=== PATIENT | female | born 1975 | race Caucasian/White ===

== ENCOUNTER 2016-03-11 10:48 | Emergency (ER) | payer MEDICAID ==
--- NOTE | 2016-03-11 11:04 | Emergency Department Record ---
History of Present Illness - General Chief complaint: Eye Problem Stated complaint: EYE PROBLEMS Time Seen by Provider: 03/11/16 11:03 Source: Patient Mode of Arrival: Ambulatory Limitations: No limitations - History of Present Illness Initial comments: The patient has had 3 days of itching, burning eyes with mild drainage and discharge. She denies any visual changes but presently does not have her glasses. She was around her mother recently who had pink eye. chief complaint: Eye pain, Eye redness Onset/Timin -: Days(s) Onset Description: Gradual Location: Both eyes Place: Home If Injury: None Eye Symptoms: Burning, Discharge, Itching, Redness Severity: Moderate If Pain, Quality: Burning Consistency: Constant Associated Symptoms: None Treatments Prior to Arrival: None - Related Data Visual acuity (L) = 20/: 200 Visual acuity (R) = 20/: 200 With correction: No Hx Tetanus Toxoid Vaccination: Yes Year of Tetanus Vaccination: 2013 Home Medications Medication Instructions Recorded Confirmed Last Taken Oxybutynin Chloride [Ditropan] 5 mg PO BID 07/05/15 03/11/16 1 Day Ago Aspirin [Aspir 81] 81 mg PO DAILY tab. 11/17/15 03/11/16 1 Day Ago Previous Rx's Medication Instructions Recorded Erythromycin Base [Erythromycin 1 apply AFFEYE TID #1 tube 03/11/16 OPTH Ointment] Allergies Allergy/AdvReac Type Severity Reaction Status Date / Time ciprofloxacin [From Cipro] Allergy Severe ANAPHYLAXIS Verified 03/11/16 11:01 ciprofloxacin HCl Allergy Severe ANAPHYLAXIS Verified 03/11/16 11:01 [From Cipro] Penicillins Allergy Severe ANAPHYLAXIS Verified 03/11/16 11:01 ketorolac tromethamine AdvReac Mild NAUSEA AND Verified 03/11/16 11:01 [From Toradol] VOMITING sulfamethoxazole AdvReac Mild NAUSEA AND Verified 03/11/16 11:01 [From Bactrim] VOMITING trimethoprim [From Bactrim] AdvReac Mild NAUSEA AND Verified 03/11/16 11:01 VOMITING vitamin d AdvReac Mild HYPERSENSIT Uncoded 12/28/15 17:11 IVITY Travel Screening - Travel/Exposure Within Last 30 Days Have you traveled within the last 30 days?: No Review of Systems Constitutional: Denies: Chills, Fever Eyes: Denies: Eye discharge ENT: Denies: Congestion Respiratory: Denies: Cough, Dyspnea Past Medical History - SOCIAL HISTORY Smoking Status: Current every day smoker Alcohol Use: None Drug Use: None - RESPIRATORY Hx Respiratory Disorders: Yes Hx Asthma: Yes (exercise) - CARDIOVASCULAR Hx Cardio Disorders: No Hx Chest Pain: Yes Comment:: 2 stress test this year - NEURO Hx Neuro Disorders: Yes Hx Headaches: Yes (migraines) - GI Hx GI Disorders: No Comment:: concussion - Hx Genitourinary Disorders: Yes Hx Bladder Problem: Yes Hx Kidney Stones: Yes (Dr. UMM Graham surgically removed a right kidney stone on 07-04-13.) - ENDOCRINE Hx Endocrine Disorders: No - MUSCULOSKELETAL Hx Musculoskeletal Disorders: Yes Hx Back Injury: Yes (SLIP AND FALL IN 2006) - PSYCH Hx Psych Problems: Yes Hx Anxiety: Yes Hx Depression: Yes - HEMATOLOGY/ONCOLOGY Hx Hematology/Oncology Disorders: No Family Medical History Any Significant Family History?: Yes Hx Cancer: Mother Hx Diabetes: Mother, Grandparents Hx Resp Disorders: Father Physical Exam - General General Appearance: Alert, Oriented x3, Cooperative, No acute distress - Head Head exam: Atraumatic, Normocephalic, Normal inspection - Eye Eye exam: Normal appearance, PERRL, EOMI, Other (Neg flourescein staining bilaterally). negative: Conjunctival injection, Periorbital tenderness, Scleral icterus With correction: No - ENT ENT exam: Normal exam, Mucous membranes moist, Normal external ear exam, Normal orophraynx, TM's normal bilaterally Throat exam: Normal inspection. negative: Tonsillar erythema, Tonsillar exudate Course Vital Signs 03/11/16 10:52 Temperature 97.9 F Pulse Rate 59 L Respiratory 18 Rate Blood Pressure 167/91 Pulse Ox 98 - Reevaluation(s) Reevaluation #1: I did discuss with the patient that she appears to have a mild case of conjunctivitis. We will prescribe her Emycin ointment. 03/11/16 11:14 Disposition Disposition: Discharge Clinical Impression: Conjunctivitis Qualifiers: Conjunctivitis type: acute Acute conjunctivitis type: unspecified Laterality: bilateral Qualified Code(s): H10.33 - Unspecified acute conjunctivitis, bilateral Disposition: Home, Self-Care Condition: (2) Stable Instructions: Conjunctivitis (ED) Additional Instructions: Please use the Emycin opthalmic ointment as directed. Please see your PCP if not better in 3 days. Prescriptions: Erythromycin Base [Erythromycin OPTH Ointment] 1 apply AFFEYE TID #1 tube Forms: Patient Portal Access Time of Disposition: 11:17
== END 2016-03-11 11:41 | disposition home or self-care (01) ==
LOC: ER 10:48
DX: H10.33 Unspecified acute conjunctivitis, bilateral (principal)
CPT/HCPCS: 99282

== ENCOUNTER 2016-04-30 16:21 | Emergency (ER) | payer MEDICAID ==
[2016-04-30] MEDS ORDERED: ONDANSETRON 4 MG ODT TABLET SL ONE (17:40)
--- NOTE | 2016-04-30 17:45 | Emergency Department Record ---
History of Present Illness - General Chief complaint: Nausea, Vomiting, Diarrhea Stated complaint: VOMITING/BODY PAINFUL Time Seen by Provider: 04/30/16 17:40 Source: Patient, Family Mode of Arrival: Ambulatory Limitations: No limitations - History of Present Illness Initial comments: 41 yo female presents with nausea, vomiting, and diarrhea that started last night. The patient denies and fever. No blood in the vomit or diarrhea. She took Imodium last night. The diarrhea resolved. She has not vomited today but remains nauseated. No rash. No cough. No recent antibiotics. MD complaint: Diarrhea, Nausea, Vomiting Onset/Timin -: Days(s) Description of Vomiting: Watery Description of Diarrhea: Green Location: Diffuse Severity: Moderate Severity scale (1-10): 9 Quality: Aching Consistency: Intermittent Improves with: Medication, Other Worsens with: Eating Associated Symptoms: Denies other symptoms - Related Data Home Medications Medication Instructions Recorded Confirmed Last Taken Oxybutynin Chloride [Ditropan] 5 mg PO BID 07/05/15 04/30/16 1 Day Ago Aspirin [Aspir 81] 81 mg PO DAILY tab. 11/17/15 04/30/16 1 Day Ago Previous Rx's Medication Instructions Recorded Ondansetron [Zofran Odt] 4 mg PO Q8H #12 tab.shaw 04/30/16 Allergies Allergy/AdvReac Type Severity Reaction Status Date / Time ciprofloxacin [From Cipro] Allergy Severe ANAPHYLAXIS Verified 04/30/16 17:27 ciprofloxacin HCl Allergy Severe ANAPHYLAXIS Verified 04/30/16 17:27 [From Cipro] Penicillins Allergy Severe ANAPHYLAXIS Verified 04/30/16 17:27 ketorolac tromethamine AdvReac Mild NAUSEA AND Verified 04/30/16 17:27 [From Toradol] VOMITING sulfamethoxazole AdvReac Mild NAUSEA AND Verified 04/30/16 17:27 [From Bactrim] VOMITING trimethoprim [From Bactrim] AdvReac Mild NAUSEA AND Verified 04/30/16 17:27 VOMITING vitamin d AdvReac Mild HYPERSENSIT Uncoded 04/30/16 17:27 IVITY Travel Screening - Travel/Exposure Within Last 30 Days Have you traveled within the last 30 days?: No - Travel/Exposure Within Last Year Have you traveled outside the [place] in the last year?: No - Additonal Travel Details Have you been exposed to anyone with a communicable illness?: No - Travel Symptoms Symptom Screening: None Review of Systems Constitutional: Denies: Chills, Fever, Malaise, Weakness Eyes: Denies: Eye discharge, Eye pain, Photophobia ENT: Denies: Congestion, Throat pain Respiratory: Denies: Cough, Dyspnea, Hemoptysis, Stridor, Wheezes Cardiovascular: Denies: Chest pain, Palpitations, Syncope Endocrine: Denies: Fatigue Gastrointestinal: Reports: As per HPI, Diarrhea, Nausea, Vomiting. Denies: Constipation, Hematemesis, Hematochezia, Melena Genitourinary: Denies: Dysuria, Urgency Musculoskeletal: Denies: Arthralgia Skin: Denies: Bruising, Change in color, Rash Neurological: Denies: Confusion, Headache, Numbness, Weakness Psychiatric: Denies: Anxiety Hematological/Lymphatic: Denies: Blood Clots, Easy bleeding, Easy bruising, Swollen glands Past Medical History - SOCIAL HISTORY Smoking Status: Current every day smoker Alcohol Use: None Drug Use: None - RESPIRATORY Hx Respiratory Disorders: Yes Hx Asthma: Yes (exercise) - CARDIOVASCULAR Hx Cardio Disorders: No Hx Chest Pain: Yes Comment:: 2 stress test this year - NEURO Hx Neuro Disorders: Yes Hx Headaches: Yes (migraines) - GI Hx GI Disorders: No Comment:: concussion - Hx Genitourinary Disorders: Yes Hx Bladder Problem: Yes Hx Kidney Stones: Yes (Dr. UMM Graham surgically removed a right kidney stone on 07-04-13.) - ENDOCRINE Hx Endocrine Disorders: No - MUSCULOSKELETAL Hx Musculoskeletal Disorders: Yes Hx Back Injury: Yes (SLIP AND FALL IN 2006) - PSYCH Hx Psych Problems: Yes Hx Anxiety: Yes Hx Depression: Yes - HEMATOLOGY/ONCOLOGY Hx Hematology/Oncology Disorders: No Family Medical History Any Significant Family History?: Yes Hx Cancer: Mother Hx Diabetes: Mother, Grandparents Hx Resp Disorders: Father Physical Exam - General General Appearance: Alert, Oriented x3, Cooperative, No acute distress Limitations: No limitations - Head Head exam: Atraumatic, Normal inspection - Eye Eye exam: Normal appearance. negative: Conjunctival injection, Periorbital swelling - ENT ENT exam: Normal exam, Mucous membranes moist Ear exam: Normal external inspection Nasal Exam: Normal inspection Mouth exam: Normal external inspection Teeth exam: Normal inspection Throat exam: Normal inspection - Neck Neck exam: Normal inspection, Full ROM. negative: Lymphadenopathy, Tenderness - Respiratory Respiratory exam: Normal lung sounds bilaterally. negative: Respiratory distress - Cardiovascular Cardiovascular Exam: Regular rate, Normal rhythm, Normal heart sounds - GI/Abdominal GI/Abdominal exam: Soft. negative: Distended, Tenderness - Rectal Rectal exam: Deferred - exam: Deferred - Extremities Extremities exam: Normal inspection, Full ROM, Normal capillary refill. negative: Pedal edema, Tenderness - Back Back exam: Reports: Normal inspection, Full ROM. Denies: CVA tenderness (R), CVA tenderness (L), Muscle spasm, Paraspinal tenderness, Rash noted, Tenderness , Vertebral tenderness - Neurological Neurological exam: Alert, Normal gait, Oriented X3 - Psychiatric Psychiatric exam: Normal affect, Normal mood - Skin Skin exam: Dry, Intact, Normal color, Warm Course Vital Signs 04/30/16 17:22 Temperature 98.9 F Pulse Rate 103 H Respiratory 20 Rate Blood Pressure 161/85 Pulse Ox 98 - Reevaluation(s) Reevaluation #1: UA reviewed No ketones Nitrite is negative LE is negative 04/30/16 18:17 Disposition Disposition: Discharge Clinical Impression: Vomiting and diarrhea Disposition: Home, Self-Care Condition: (1) Good Instructions: Acute Nausea and Vomiting (ED) Additional Instructions: Rest and stay well hydrated Return if worse or any uncontrolled nausea, vomiting or diarrhea Prescriptions: Ondansetron [Zofran Odt] 4 mg PO Q8H #12 tab.rapdis Forms: Patient Portal Access Time of Disposition: 18:18
[2016-04-30 18:00] LABS: URINE APPEARANCE CLEAR; URINE BILIRUBIN NEGATIVE (NEGATIVE); URINE BLOOD MODERATE (NEGATIVE); URINE COLOR YELLOW; URINE GLUCOSE (UA) NEGATIVE (NEGATIVE); URINE KETONE NEGATIVE (NEGATIVE); URINE LEUKOCYTE ESTERASE NEGATIVE (NEGATIVE); URINE NITRITE NEGATIVE (NEGATIVE); URINE PROTEIN TRACE (NEGATIVE)
[2016-04-30 18:07] LABS: URINE BACTERIA FEW; URINE WBC 0 - 2 (0-2/hpf)
== END 2016-04-30 18:34 | disposition home or self-care (01) ==
LOC: ER 16:21
DX: R11.2 Nausea with vomiting, unspecified (principal); R19.7 Diarrhea, unspecified
CPT/HCPCS: 81001; 81025; 99282

== ENCOUNTER 2016-06-18 21:44 | Emergency (ER) | payer MEDICAID ==
--- NOTE | 2016-06-18 23:40 | Emergency Department Record ---
History of Present Illness - General Chief complaint: Eye Problem Stated complaint: PINK EYE Time Seen by Provider: 06/18/16 23:37 Source: Patient Mode of Arrival: Ambulatory - History of Present Illness Initial comments: Eyes are red, irritated, and now draining in the corners thick discharge. No f, c, URI symptoms or other problems. chief complaint: Eye redness, Other (drainage) Onset/Timin -: Days(s) Onset Description: Gradual Location: Both eyes Place: Home If Injury: None Eye Symptoms: Burning, Blurry vision, Discharge, Pain, Redness Severity: Mild Severity scale (1-10): 9 If Pain, Quality: Other Consistency: Other Context: Other Associated Symptoms: None Treatments Prior to Arrival: Other - Related Data Hx Tetanus Toxoid Vaccination: Yes Year of Tetanus Vaccination: 2013 Patient Tetanus UTD (within 5 yrs): Yes Home Medications Medication Instructions Recorded Confirmed Last Taken Oxybutynin Chloride [Ditropan] 5 mg PO BID 07/05/15 04/30/16 1 Day Ago ~04/29/16 Aspirin [Aspir 81] 81 mg PO DAILY tab. 11/17/15 04/30/16 1 Day Ago ~04/29/16 Previous Rx's Medication Instructions Recorded Ondansetron [Zofran Odt] 4 mg PO Q8H #12 tablisa 04/30/16 Allergies Allergy/AdvReac Type Severity Reaction Status Date / Time ciprofloxacin [From Cipro] Allergy Severe ANAPHYLAXIS Verified 04/30/16 17:27 ciprofloxacin HCl Allergy Severe ANAPHYLAXIS Verified 04/30/16 17:27 [From Cipro] Penicillins Allergy Severe ANAPHYLAXIS Verified 04/30/16 17:27 ketorolac tromethamine AdvReac Mild NAUSEA AND Verified 04/30/16 17:27 [From Toradol] VOMITING sulfamethoxazole AdvReac Mild NAUSEA AND Verified 04/30/16 17:27 [From Bactrim] VOMITING trimethoprim [From Bactrim] AdvReac Mild NAUSEA AND Verified 04/30/16 17:27 VOMITING vitamin d AdvReac Mild HYPERSENSIT Uncoded 04/30/16 17:27 IVITY Travel Screening - Travel/Exposure Within Last 30 Days Have you traveled within the last 30 days?: No - Travel/Exposure Within Last Year Have you traveled outside the [place] in the last year?: No - Additonal Travel Details Have you been exposed to anyone with a communicable illness?: No - Travel Symptoms Symptom Screening: None Review of Systems Reviewed: No additional complaints except as noted below Constitutional: Reports: As per HPI. Denies: Chills, Fever, Malaise, Night sweats, Weakness, Weight change Eyes: Reports: As per HPI. Denies: Eye discharge, Eye pain, Photophobia, Vision change ENT: Reports: As per HPI. Denies: Congestion, Dental pain, Ear pain, Epistaxis , Hearing loss, Throat pain Respiratory: Reports: As per HPI. Denies: Cough, Dyspnea, Hemoptysis, Stridor, Wheezes Cardiovascular: Reports: As per HPI. Denies: Arrhythmia, Chest pain, Dyspnea on exertion, Edema, Murmurs, Orthopnea, Palpitations, Paroxysmal nocturnal dyspnea, Rheumatic Fever, Syncope Endocrine: Reports: As per HPI. Denies: Fatigue, Heat or cold intolerance, Polydipsia, Polyuria Gastrointestinal: Reports: As per HPI. Denies: Abdominal pain, Constipation, Diarrhea, Hematemesis, Hematochezia, Melena, Nausea, Vomiting Genitourinary: Reports: As per HPI. Denies: Abnormal menses, Discharge, Dyspareunia, Dysuria, Frequency, Hematuria, Incontinence, Retention, Urgency Musculoskeletal: Reports: As per HPI. Denies: Arthralgia, Back pain, Gout, Joint swelling, Myalgia, Neck pain Skin: Reports: As per HPI. Denies: Bruising, Change in color, Change in hair/ nails, Lesions, Pruritus, Rash Neurological: Reports: As per HPI. Denies: Abnormal gait, Confusion, Headache, Numbness, Paresthesias, Seizure, Tingling, Tremors, Vertigo, Weakness Psychiatric: Reports: As per HPI. Denies: Anxiety, Auditory hallucinations, Depression, Homicidal thoughts, Suicidal thoughts, Visual hallucinations Hematological/Lymphatic: Reports: As per HPI. Denies: Anemia, Blood Clots, Easy bleeding, Easy bruising, Swollen glands Past Medical History - SOCIAL HISTORY Smoking Status: Current every day smoker Alcohol Use: None Drug Use: None - RESPIRATORY Hx Respiratory Disorders: Yes Hx Asthma: Yes (exercise) - CARDIOVASCULAR Hx Cardio Disorders: No Hx Chest Pain: Yes Comment:: 2 stress test this year - NEURO Hx Neuro Disorders: Yes Hx Headaches: Yes (migraines) - GI Hx GI Disorders: No Comment:: concussion - Hx Genitourinary Disorders: Yes Hx Bladder Problem: Yes Hx Kidney Stones: Yes (Dr. UMM Graham surgically removed a right kidney stone on 07-04-13.) - ENDOCRINE Hx Endocrine Disorders: No - MUSCULOSKELETAL Hx Musculoskeletal Disorders: Yes Hx Back Injury: Yes (SLIP AND FALL IN 2006) - PSYCH Hx Psych Problems: Yes Hx Anxiety: Yes Hx Depression: Yes - HEMATOLOGY/ONCOLOGY Hx Hematology/Oncology Disorders: No Family Medical History Any Significant Family History?: No Hx Cancer: Mother Hx Diabetes: Mother, Grandparents Hx Resp Disorders: Father Physical Exam - General General Appearance: Alert, Oriented x3, Cooperative, No acute distress - Head Head exam: Normal inspection - Eye Eye exam: Normal appearance, PERRL, Conjunctival injection, EOMI, Other (trace discharge. No FB.) Pupils: Normal accommodation - ENT ENT exam: Normal exam, Mucous membranes moist, Normal external ear exam, Normal orophraynx, TM's normal bilaterally Ear exam: Normal external inspection. negative: External canal tenderness Nasal Exam: Normal inspection. negative: Discharge, Sinus tenderness Mouth exam: Normal external inspection, Tongue normal Teeth exam: Normal inspection. negative: Dental caries Throat exam: Normal inspection. negative: Tonsillar erythema, Tonsillar exudate - Neck Neck exam: Normal inspection, Full ROM. negative: Tenderness - Respiratory Respiratory exam: Normal lung sounds bilaterally. negative: Respiratory distress - Cardiovascular Cardiovascular Exam: Regular rate, Normal rhythm, Normal heart sounds - GI/Abdominal GI/Abdominal exam: Soft, Normal bowel sounds. negative: Tenderness - Rectal Rectal exam: Deferred - exam: Deferred - Extremities Extremities exam: Normal inspection, Full ROM, Normal capillary refill. negative: Tenderness - Back Back exam: Reports: Normal inspection, Full ROM. Denies: Muscle spasm, Rash noted, Tenderness - Neurological Neurological exam: Alert, Normal gait, Oriented X3, Reflexes normal - Psychiatric Psychiatric exam: Normal affect, Normal mood - Skin Skin exam: Dry, Intact, Normal color, Warm Course Vital Signs 06/18/16 22:17 Temperature 98.5 F Pulse Rate 83 Respiratory 20 Rate Blood Pressure 142/90 Pulse Ox 97 Medical Decision Making - Management Options MDM Management: No Additional Work-up Planned Disposition Disposition: Discharge Clinical Impression: Conjunctivitis Qualifiers: Conjunctivitis type: acute Acute conjunctivitis type: unspecified Laterality: bilateral Qualified Code(s): H10.33 - Unspecified acute conjunctivitis, bilateral Disposition: Home, Self-Care Condition: (2) Stable Instructions: Conjunctivitis (ED) Additional Instructions: Take antibiotic eye drops as directed for 5 days. Do not rub eyes. Immaculate handwashing following eye drops and touching of eyes. Follow up with PCP next week. Forms: Patient Portal Access
[2016-06-18] MEDS ORDERED: GENTAMICIN SULFATE 0.3% OPTH 5 ML BTL OPTH ONE (23:53)
== END 2016-06-19 00:08 | disposition home or self-care (01) ==
LOC: ER 21:44
DX: H10.33 Unspecified acute conjunctivitis, bilateral (principal)
CPT/HCPCS: 99282

== ENCOUNTER 2016-06-25 16:38 | Emergency (ER) | payer MEDICAID ==
[2016-06-25 17:01] LABS: URINE APPEARANCE CLOUDY; URINE BILIRUBIN NEGATIVE (NEGATIVE); URINE BLOOD LARGE (NEGATIVE); URINE COLOR RED; URINE GLUCOSE (UA) NEGATIVE (NEGATIVE); URINE KETONE NEGATIVE (NEGATIVE); URINE LEUKOCYTE ESTERASE SMALL (NEGATIVE); URINE NITRITE NEGATIVE (NEGATIVE); URINE PROTEIN TRACE (NEGATIVE); URINE UROBILINOGEN 0.2 E.U./dL (0.20 - 1.00)
[2016-06-25 17:05] LABS: URINE WBC 0 - 2 (0-2/hpf)
--- NOTE | 2016-06-25 17:17 | Emergency Department Record ---
History of Present Illness - General Chief complaint: Flank Pain Stated complaint: KIDNEY STONE Time Seen by Provider: 06/25/16 16:39 Source: Patient Mode of Arrival: Ambulatory Limitations: No limitations - History of Present Illness Initial comments: 41 yo female presents to ED with a CC of "left flank pain" that began 2 weeks ago following lithotripsy, reports that Dr. Matos placed a ureteral stent approximately 2 months ago. Patient denies fevers, chills, or recent illness. Patient reports hematuria symptoms now that her stone is "starting to move around" MD Complaint: Other (hematuria) Onset/Timin -: Week(s) Location: LLQ Radiation: L flank, LLQ Severity: Moderate Severity scale (1-10): 8 Quality: Aching, Cramping Consistency: Constant Patient : No Associated Symptoms: Hematuria - Related Data Home Medications Medication Instructions Recorded Confirmed Last Taken Oxybutynin Chloride [Ditropan] 5 mg PO BID 07/05/15 06/25/16 1 Day Ago ~06/24/16 Aspirin [Aspir 81] 81 mg PO DAILY tab. 11/17/15 06/25/16 1 Day Ago ~06/24/16 Previous Rx's Medication Instructions Recorded Ondansetron [Zofran Odt] 4 mg PO Q8H #12 tab.rapdis 04/30/16 Tramadol HCl [Ultram] 50 mg PO Q8H PRN #7 tab 06/25/16 Allergies Allergy/AdvReac Type Severity Reaction Status Date / Time ciprofloxacin [From Cipro] Allergy Severe ANAPHYLAXIS Verified 04/30/16 17:27 ciprofloxacin HCl Allergy Severe ANAPHYLAXIS Verified 04/30/16 17:27 [From Cipro] Penicillins Allergy Severe ANAPHYLAXIS Verified 04/30/16 17:27 ketorolac tromethamine AdvReac Mild NAUSEA AND Verified 04/30/16 17:27 [From Toradol] VOMITING sulfamethoxazole AdvReac Mild NAUSEA AND Verified 04/30/16 17:27 [From Bactrim] VOMITING trimethoprim [From Bactrim] AdvReac Mild NAUSEA AND Verified 04/30/16 17:27 VOMITING vitamin d AdvReac Mild HYPERSENSIT Uncoded 04/30/16 17:27 IVITY Travel Screening - Travel/Exposure Within Last 30 Days Have you traveled within the last 30 days?: No - Travel/Exposure Within Last Year Have you traveled outside the [place] in the last year?: No - Additonal Travel Details Have you been exposed to anyone with a communicable illness?: No - Travel Symptoms Symptom Screening: None Review of Systems Constitutional: Denies: Chills, Fever, Malaise, Night sweats Eyes: Denies: Eye discharge, Eye pain ENT: Denies: Congestion, Ear pain, Epistaxis Respiratory: Denies: Cough, Dyspnea Cardiovascular: Denies: Chest pain, Dyspnea on exertion Endocrine: Denies: Fatigue, Heat or cold intolerance Gastrointestinal: Denies: Abdominal pain, Nausea, Vomiting Genitourinary: Reports: Hematuria. Denies: Dysuria, Frequency, Incontinence, Retention Musculoskeletal: Reports: Back pain (left sided flank pain symptoms). Denies: Arthralgia Skin: Denies: Bruising, Change in color Neurological: Denies: Abnormal gait, Confusion, Headache, Seizure Psychiatric: Denies: Anxiety Hematological/Lymphatic: Denies: Anemia, Blood Clots Past Medical History - SOCIAL HISTORY Smoking Status: Current every day smoker Alcohol Use: None Drug Use: None - RESPIRATORY Hx Respiratory Disorders: Yes Hx Asthma: Yes (exercise) - CARDIOVASCULAR Hx Cardio Disorders: No Hx Chest Pain: Yes Comment:: 2 stress test this year - NEURO Hx Neuro Disorders: Yes Hx Headaches: Yes (migraines) - GI Hx GI Disorders: No Comment:: concussion - Hx Genitourinary Disorders: Yes Hx Bladder Problem: Yes Hx Kidney Stones: Yes (Dr. UMM Graham surgically removed a right kidney stone on 07-04-13.) - ENDOCRINE Hx Endocrine Disorders: No - MUSCULOSKELETAL Hx Musculoskeletal Disorders: Yes Hx Back Injury: Yes (SLIP AND FALL IN 2006) - PSYCH Hx Psych Problems: Yes Hx Anxiety: Yes Hx Depression: Yes - HEMATOLOGY/ONCOLOGY Hx Hematology/Oncology Disorders: No Family Medical History Any Significant Family History?: Yes Hx Cancer: Mother Hx Diabetes: Mother, Grandparents Hx Resp Disorders: Father Physical Exam - General General Appearance: Alert, Oriented x3, Cooperative, Mild distress Limitations: No limitations - Head Head exam: Atraumatic, Normocephalic, Normal inspection Head exam detail: negative: Abrasion, Contusion, Gonsalves's sign, General tenderness, Hematoma, Laceration - Eye Eye exam: Normal appearance. negative: Conjunctival injection, Periorbital swelling, Periorbital tenderness, Scleral icterus - ENT Ear exam: negative: Auricular hematoma, Auricular trauma Nasal Exam: negative: Active bleeding, Discharge, Dried blood, Foreign body Mouth exam: negative: Drooling, Laceration, Muffled voice, Tongue elevation - Neck Neck exam: Normal inspection. negative: Meningismus, Tenderness - Respiratory Respiratory exam: Normal lung sounds bilaterally. negative: Rales, Respiratory distress, Rhonchi, Stridor - Cardiovascular Cardiovascular Exam: Regular rate, Normal rhythm, Normal heart sounds - GI/Abdominal GI/Abdominal exam: Soft. negative: Rebound, Rigid, Tenderness - Rectal Rectal exam: Deferred - exam: Deferred - Extremities Extremities exam: negative: Calf tenderness, Pedal edema, Tenderness - Back Back exam: Reports: CVA tenderness (L). Denies: CVA tenderness (R) - Neurological Neurological exam: Alert, Normal gait, Oriented X3 - Psychiatric Psychiatric exam: Normal affect, Normal mood - Skin Skin exam: Normal color. negative: Abrasion Type of lesion: negative: abrasion Course Vital Signs 06/25/16 16:45 Temperature 98.0 F Pulse Rate 74 Respiratory 18 Rate Blood Pressure 141/80 Pulse Ox 97 - Reevaluation(s) Reevaluation #1: 06/25/16 17:15 UA reviewed and appears consistent hematuria, no evidence for infection. Previous records reviewed, patient has numerous CT imaging studies over the past 24 months (>20 studies). As a result, will obtain plain film radiograph to determine the presence of a stone and stent placement. Reevaluation #2: 06/25/16 17:53 Abdomen film: Left sided ureteral stent in place, multiple small calcifications are present to the inferior/posterior aspect of the stent. Patient was updated on all results, is well appearing on examination, and appears stable for discharge to follow-up with Dr. Matos on Sunday as scheduled. Patient is smiling, well appearing, and joking at the time of discharge. Medical Decision Making - Lab Data Lab Results 06/25/16 Range/Units 16:55 Urine Color Red H Urine Appearance Cloudy Urine pH 6.0 (5.0-8.0) Ur Specific [place] 1.010 (1.002-1.030) Urine Protein Trace H (NEGATIVE) Urine Glucose (UA) Negative (NEGATIVE) Urine Ketones Negative (NEGATIVE) Urine Blood Large H (NEGATIVE) Urine Nitrite Negative (NEGATIVE) Urine Bilirubin Negative (NEGATIVE) Urine Urobilinogen 0.2 (0.20 - 1.00) E.U./dL Ur Leukocyte Esterase Small H (NEGATIVE) Urine RBC Too numerous to cnt (NONE SEEN) Urine WBC 0 - 2 (0-2/hpf) Ur Epithelial Cells 3 - 6 (FEW) Disposition Disposition: Discharge Clinical Impression: Ureteral calculi Disposition: Home, Self-Care Condition: (2) Stable Instructions: Kidney Stones (ED) Additional Instructions: Return to ED if your symptoms worsen or if you have any concerns. Ultram as needed for your pain symptoms. Follow-up with Dr. Matos as scheduled Sunday. Prescriptions: Tramadol HCl [Ultram] 50 mg PO Q8H PRN #7 tab PRN Reason: Pain - Moderate (5-7) Forms: Patient Portal Access Time of Disposition: 17:58
[2016-06-25] MEDS ORDERED: TRAMADOL HCL 50 MG TABLET PO ONE (18:02)
--- NOTE | 2016-06-29 17:16 | RADIOLOGY REPORT ---
EXAM: ABDOMEN 1 VIEW HISTORY: LEFT FLANK PAIN. TECHNIQUE: A single AP supine view of the abdomen was performed. COMPARISON: March 09, 2016. FINDINGS: A left ureteral stent is in place. There are multiple stone fragments along the distal aspect of the stent above the level of the ureterovesical junction. At least five discrete stone fragments are present, the largest of which measures 5 mm in maximal dimension. There are multiple small stone fragments within the inferior pole of the left kidney, the largest of which measures 6 mm in maximal dimension. There is a stone fragment at the level of the renal pelvis projecting within the loop of the ureteral stent and measures 9 mm in maximal dimension. There are no visible right urinary tract calculi. The abdominal gas pattern is nonobstructive. The bones appear intact. IMPRESSION: 1. LEFT URETERAL STENT IN PLACE. 2. THERE ARE MULTIPLE RESIDUAL STONE FRAGMENTS WITHIN THE LEFT KIDNEY AND RENAL PELVIS WELL ALONG THE DISTAL LEFT URETER. JOB NUMBER: [id number] MTDD
== END 2016-06-25 18:08 | disposition home or self-care (01) ==
LOC: ER 16:38
DX: N20.1 Calculus of ureter (principal); R31.0 Gross hematuria; Z87.442 Personal history of urinary calculi
CPT/HCPCS: 74000; 81001; 99283

== ENCOUNTER 2016-08-18 21:29 | Emergency (ER) | payer MEDICAID ==
--- NOTE | 2016-08-18 21:42 | Emergency Department Record ---
History of Present Illness - General Chief complaint: Pain Stated complaint: BODY PAIN Time Seen by Provider: 08/18/16 21:31 Source: Patient, Family Mode of Arrival: Ambulatory Limitations: No limitations - History of Present Illness Initial comments: 41 yo female presents with progressive body pain for several weeks. She states she aches from head to toes. She reports her skin, muscle and joints hurt all over her body. She is concerned she has fibromyalgia. She saw her PCP recently and was started on Mobic without significant improvement. No redness, no rash, no joint swelling, no fevers, no numbness, tingling or weakness. No edema. No cough or shortness of breath. She is currently homeless and living out of her car which has seemed to worsen the symptoms. No vomiting or diarrhea. MD Complaint: Diffuse -: Week(s) Location: Other (entire body without exception) -: Yes Arthralgia, Yes Myalgia Radiation: Other (everywhere) Quality: Aching Consistency: Constant Improves with: Rest Worsens with: Walking, Weight bearing - Related Data Home Medications Medication Instructions Recorded Confirmed Last Taken Oxybutynin Chloride [Ditropan] 5 mg PO BID 07/05/15 06/25/16 1 Day Ago ~06/24/16 Aspirin [Aspir 81] 81 mg PO DAILY tab. 11/17/15 06/25/16 1 Day Ago ~06/24/16 Allergies Allergy/AdvReac Type Severity Reaction Status Date / Time ciprofloxacin [From Cipro] Allergy Severe ANAPHYLAXIS Verified 08/18/16 21:33 ciprofloxacin HCl Allergy Severe ANAPHYLAXIS Verified 08/18/16 21:33 [From Cipro] Penicillins Allergy Severe ANAPHYLAXIS Verified 08/18/16 21:33 ketorolac tromethamine AdvReac Mild NAUSEA AND Verified 08/18/16 21:33 [From Toradol] VOMITING sulfamethoxazole AdvReac Mild NAUSEA AND Verified 08/18/16 21:33 [From Bactrim] VOMITING trimethoprim [From Bactrim] AdvReac Mild NAUSEA AND Verified 08/18/16 21:33 VOMITING vitamin d AdvReac Mild HYPERSENSIT Uncoded 04/30/16 17:27 IVITY Review of Systems Constitutional: Reports: Malaise. Denies: Chills, Fever, Weakness Eyes: Denies: Eye discharge ENT: Denies: Congestion, Throat pain Respiratory: Denies: Cough, Dyspnea, Hemoptysis, Stridor, Wheezes Cardiovascular: Denies: Chest pain, Palpitations, Syncope Endocrine: Reports: Fatigue. Denies: Polydipsia, Polyuria Gastrointestinal: Denies: Abdominal pain, Diarrhea, Nausea, Vomiting Genitourinary: Denies: Dyspareunia, Dysuria, Urgency Musculoskeletal: Reports: Arthralgia, Back pain, Myalgia. Denies: Joint swelling, Neck pain Skin: Denies: Bruising, Change in color, Rash Neurological: Denies: Confusion, Headache, Numbness, Vertigo, Weakness Psychiatric: Denies: Anxiety Hematological/Lymphatic: Denies: Blood Clots, Easy bleeding, Easy bruising, Swollen glands Past Medical History - SOCIAL HISTORY Smoking Status: Current every day smoker Drug Use: None - RESPIRATORY Hx Respiratory Disorders: Yes Hx Asthma: Yes (exercise) - CARDIOVASCULAR Hx Cardio Disorders: No Hx Chest Pain: Yes Comment:: 2 stress test this year - NEURO Hx Neuro Disorders: Yes Hx Headaches: Yes (migraines) - GI Hx GI Disorders: No Comment:: concussion - Hx Genitourinary Disorders: Yes Hx Bladder Problem: Yes Hx Kidney Stones: Yes (Dr. UMM Graham surgically removed a right kidney stone on 07-04-13.) - ENDOCRINE Hx Endocrine Disorders: No - MUSCULOSKELETAL Hx Musculoskeletal Disorders: Yes Hx Back Injury: Yes (SLIP AND FALL IN 2006) - PSYCH Hx Psych Problems: Yes Hx Anxiety: Yes Hx Depression: Yes - HEMATOLOGY/ONCOLOGY Hx Hematology/Oncology Disorders: No Family Medical History Hx Cancer: Mother Hx Diabetes: Mother, Grandparents Hx Resp Disorders: Father Physical Exam - General General Appearance: Alert, Oriented x3, Cooperative, No acute distress Limitations: No limitations - Head Head exam: Atraumatic, Normocephalic, Normal inspection - Eye Eye exam: Normal appearance, PERRL. negative: Conjunctival injection, Periorbital swelling - ENT ENT exam: Normal exam, Mucous membranes moist, Normal external ear exam, Normal orophraynx Ear exam: Normal external inspection. negative: External canal tenderness Nasal Exam: Normal inspection. negative: Discharge, Sinus tenderness Mouth exam: Normal external inspection, Tongue normal - Neck Neck exam: Normal inspection, Full ROM. negative: Lymphadenopathy, Tenderness - Respiratory Respiratory exam: Normal lung sounds bilaterally. negative: Respiratory distress - Cardiovascular Cardiovascular Exam: Regular rate, Normal rhythm, Normal heart sounds Peripheral Pulses: 2+: Radial (R), Radial (L), Dorsalis Pedis (R), Dorsalis Pedis (L) - GI/Abdominal GI/Abdominal exam: Soft. negative: Tenderness - Rectal Rectal exam: Deferred - exam: Deferred - Extremities Extremities exam: Normal inspection, Calf tenderness, Full ROM, Normal capillary refill, Tenderness (tender over entire body where every palpated, normal skin appearance, no rash, no edema). negative: Joint swelling, Pedal edema - Back Back exam: Reports: Normal inspection, CVA tenderness (R), CVA tenderness (L), Full ROM, Paraspinal tenderness, Tenderness. Denies: Muscle spasm, Rash noted - Neurological Neurological exam: Alert, Normal gait, Oriented X3, Reflexes normal - Psychiatric Psychiatric exam: Normal affect, Normal mood - Skin Skin exam: Dry, Intact, Normal color, Warm. negative: Cyanosis, Diaphoretic, Erythema, Mottled, Pallor, Petechiae, Rash, Urticaria, Vesicles Type of lesion: negative: abrasion, Abscess Course Vital Signs 08/18/16 21:34 Temperature 98.7 F Pulse Rate [ 69 Pulse Ox Probe] Respiratory 18 Rate Blood Pressure 144/98 [Left Arm] Pulse Ox 100 - Reevaluation(s) Reevaluation #1: The patient is well appearing Labs ordered based on her symptoms 08/18/16 21:45 Reevaluation #2: The labs were reviewed No acute changes of the CBC,CRP,ESR The patient was informed She was encouraged to call her PCP on Sunday for close follow up 08/18/16 22:42 Medical Decision Making - Lab Data Result diagrams: 08/18/16 21:58 08/18/16 21:58 Disposition Disposition: Discharge Clinical Impression: Myalgia Disposition: Home, Self-Care Condition: (1) Good Instructions: Fibromyalgia (ED), Musculoskeletal Pain (ED) Additional Instructions: Call your doctor to be seen first of the week concerning your symptoms Continue your current medications. Forms: Patient Portal Access Time of Disposition: 22:43 Quality - Quality Measures Quality Measures: N/A - Blood Pressure Screening View Details: Yes Blood Pressure Classification: Hypertensive Reading Systolic Measurement: 144 Diastolic Measurement: 98 Screening for High Blood Pressure: < Pre-Hypertensive BP, F/U Documented > [ G8950] Pre-Hypertensive Follow-up Interventions: Referral to alternative/primary care provider.
[2016-08-18 22:04] LABS: BASO % 0.4 % (0-6); EOS % 6.9 % (0-6); GRAN % 48.5 % (47-80); HEMATOCRIT 37.5 % (35.0-47.0); HEMOGLOBIN 13.2 gm/dl (11.6-16.0); LYMPH % 37.7 % (16-45); MEAN CELL VOLUME 95.7 fl (81-97); MEAN CORPUSCULAR HEMOGLOBIN 33.7 pg (27-33); MEAN CORPUSCULAR HGB CONC 35.2 g/dl (32-36); MEAN PLATELET VOLUME 9.4 fl (7.4-10.4); MONO % 6.5 % (0-9); PLATELET COUNT 263 K/uL (130-400); RED BLOOD COUNT 3.92 M/uL (3.80-5.40); WHITE BLOOD COUNT W/O DIFF 8.1 K/uL (4.2-12.2)
[2016-08-18 22:15] LABS: ANION GAP 9.2 (7-16); BLOOD UREA NITROGEN 13 mg/dL (7-17); CARBON DIOXIDE 23.8 mmol/L (22-30); CREATINE PHOSPHOKINASE 45 U/L (30-135); CREATININE 1.1 mg/dL (0.52-1.04); EST GLOMERULAR FILTRATION RATE 58 ml/min; GLUCOSE,RANDOM 106 mg/dL (70-110)
[2016-08-18 22:32] LABS: C-REACTIVE PROTEIN < 0.5 mg/dL (0.0-0.9)
[2016-08-18 22:37] LABS: URINE APPEARANCE CLEAR; URINE BILIRUBIN NEGATIVE (NEGATIVE); URINE BLOOD SMALL (NEGATIVE); URINE COLOR YELLOW; URINE GLUCOSE (UA) NEGATIVE (NEGATIVE); URINE KETONE NEGATIVE (NEGATIVE); URINE LEUKOCYTE ESTERASE NEGATIVE (NEGATIVE); URINE NITRITE NEGATIVE (NEGATIVE); URINE PROTEIN NEGATIVE (NEGATIVE); URINE UROBILINOGEN 0.2 E.U./dL (0.20 - 1.00)
[2016-08-18 22:40] LABS: ERYTHROCYTE SEDIMENTATION RATE 7 mm/hr (0-20)
[2016-08-18 22:41] LABS: HCG,QUALITATIVE URINE NEGATIVE (NEGATIVE)
[2016-08-18 22:47] LABS: URINE AMORPHOUS SEDIMENT 2+; URINE WBC 0 - 2 (0-2/hpf)
== END 2016-08-18 22:52 | disposition home or self-care (01) ==
LOC: ER 21:29
DX: M79.1 Myalgia (principal)
CPT/HCPCS: 80048; 81001; 81025; 82550; 85025; 85651; 86140; 99283

== ENCOUNTER 2016-09-17 23:38 | Emergency (ER) | payer MEDICAID ==
--- NOTE | 2016-09-18 00:04 | Emergency Department Record ---
History of Present Illness - General Chief complaint: Pain Stated complaint: SHOULDER PAIN Time Seen by Provider: 09/17/16 23:52 Source: Patient - History of Present Illness Initial comments: The patient denies injury to her shoulder but states it has been increasingly painful over the past 2 weeks with no known injury. She states she has had PT on her shoulder before. Suddenly worse tonight, mostly posteriorly. MD Complaint: Extremity pain - Related Data Home Medications Medication Instructions Recorded Confirmed Last Taken Oxybutynin Chloride [Ditropan] 5 mg PO BID 07/05/15 09/17/16 1 Day Ago ~06/24/16 Aspirin [Aspir 81] 81 mg PO DAILY tab. 11/17/15 09/17/16 1 Day Ago ~06/24/16 Previous Rx's Medication Instructions Recorded Cyclobenzaprine HCl [Flexeril] 10 mg PO TID #14 tablet 09/18/16 Allergies Allergy/AdvReac Type Severity Reaction Status Date / Time ciprofloxacin [From Cipro] Allergy Severe ANAPHYLAXIS Verified 08/18/16 21:33 ciprofloxacin HCl Allergy Severe ANAPHYLAXIS Verified 08/18/16 21:33 [From Cipro] Penicillins Allergy Severe ANAPHYLAXIS Verified 08/18/16 21:33 ketorolac tromethamine AdvReac Mild NAUSEA AND Verified 08/18/16 21:33 [From Toradol] VOMITING sulfamethoxazole AdvReac Mild NAUSEA AND Verified 08/18/16 21:33 [From Bactrim] VOMITING trimethoprim [From Bactrim] AdvReac Mild NAUSEA AND Verified 08/18/16 21:33 VOMITING vitamin d AdvReac Mild HYPERSENSIT Uncoded 04/30/16 17:27 IVITY Review of Systems Reviewed: No additional complaints except as noted below Constitutional: Reports: As per HPI. Denies: Chills, Fever, Malaise, Night sweats, Weakness, Weight change Eyes: Reports: As per HPI. Denies: Eye discharge, Eye pain, Photophobia, Vision change ENT: Reports: As per HPI. Denies: Congestion, Dental pain, Ear pain, Epistaxis , Hearing loss, Throat pain Respiratory: Reports: As per HPI. Denies: Cough, Dyspnea, Hemoptysis, Stridor, Wheezes Cardiovascular: Reports: As per HPI. Denies: Arrhythmia, Chest pain, Dyspnea on exertion, Edema, Murmurs, Orthopnea, Palpitations, Paroxysmal nocturnal dyspnea, Rheumatic Fever, Syncope Endocrine: Reports: As per HPI. Denies: Fatigue, Heat or cold intolerance, Polydipsia, Polyuria Gastrointestinal: Reports: As per HPI. Denies: Abdominal pain, Constipation, Diarrhea, Hematemesis, Hematochezia, Melena, Nausea, Vomiting Genitourinary: Reports: As per HPI. Denies: Abnormal menses, Discharge, Dyspareunia, Dysuria, Frequency, Hematuria, Incontinence, Retention, Urgency Musculoskeletal: Reports: As per HPI. Denies: Arthralgia, Back pain, Gout, Joint swelling, Myalgia, Neck pain Skin: Reports: As per HPI. Denies: Bruising, Change in color, Change in hair/ nails, Lesions, Pruritus, Rash Neurological: Reports: As per HPI. Denies: Abnormal gait, Confusion, Headache, Numbness, Paresthesias, Seizure, Tingling, Tremors, Vertigo, Weakness Psychiatric: Reports: As per HPI. Denies: Anxiety, Auditory hallucinations, Depression, Homicidal thoughts, Suicidal thoughts, Visual hallucinations Hematological/Lymphatic: Reports: As per HPI. Denies: Anemia, Blood Clots, Easy bleeding, Easy bruising, Swollen glands Past Medical History - SOCIAL HISTORY Smoking Status: Current every day smoker Drug Use: None - RESPIRATORY Hx Respiratory Disorders: Yes Hx Asthma: Yes (exercise) - CARDIOVASCULAR Hx Cardio Disorders: No Hx Chest Pain: Yes Comment:: 2 stress test this year - NEURO Hx Neuro Disorders: Yes Hx Headaches: Yes (migraines) - GI Hx GI Disorders: No Comment:: concussion - Hx Genitourinary Disorders: Yes Hx Bladder Problem: Yes Hx Kidney Stones: Yes (Dr. UMM Graham surgically removed a right kidney stone on 07-04-13.) - ENDOCRINE Hx Endocrine Disorders: No - MUSCULOSKELETAL Hx Musculoskeletal Disorders: Yes Hx Back Injury: Yes (SLIP AND FALL IN 2006) - PSYCH Hx Psych Problems: Yes Hx Anxiety: Yes Hx Depression: Yes - HEMATOLOGY/ONCOLOGY Hx Hematology/Oncology Disorders: No Family Medical History Hx Cancer: Mother Hx Diabetes: Mother, Grandparents Hx Resp Disorders: Father Physical Exam - General General Appearance: Alert, Oriented x3, Cooperative, No acute distress - Head Head exam: Normal inspection - Eye Eye exam: Normal appearance, PERRL Pupils: Normal accommodation - ENT ENT exam: Normal exam, Mucous membranes moist, Normal external ear exam, Normal orophraynx, TM's normal bilaterally Ear exam: Normal external inspection. negative: External canal tenderness Nasal Exam: Normal inspection. negative: Discharge, Sinus tenderness Mouth exam: Normal external inspection, Tongue normal Teeth exam: Normal inspection. negative: Dental caries Throat exam: Normal inspection. negative: Tonsillar erythema, Tonsillar exudate - Neck Neck exam: Normal inspection, Full ROM. negative: Tenderness - Respiratory Respiratory exam: Normal lung sounds bilaterally. negative: Respiratory distress - Cardiovascular Cardiovascular Exam: Regular rate, Normal rhythm, Normal heart sounds - GI/Abdominal GI/Abdominal exam: Soft, Normal bowel sounds. negative: Tenderness - Rectal Rectal exam: Deferred - exam: Deferred - Extremities Extremities exam: Normal inspection, Full ROM, Normal capillary refill, Tenderness (right posterior medial scapula tender on palpation and with ROM of shoulder; right shoulder with intact ROM. CMS intact distally.) - Back Back exam: Reports: Normal inspection, Full ROM. Denies: Muscle spasm, Rash noted, Tenderness - Neurological Neurological exam: Alert, Normal gait, Oriented X3, Reflexes normal - Psychiatric Psychiatric exam: Normal affect, Normal mood - Skin Skin exam: Dry, Intact, Normal color, Warm Course - Reevaluation(s) Reevaluation #1: Patient aware xray reading is preliminary only. 09/18/16 00:28 Medical Decision Making - Management Options MDM Management: No Additional Work-up Planned - Data Complexity MDM Data: X-Ray Ordered and/or Reviewed (Xray shoulder and scapula right side: Neg per ED physician.) Disposition Disposition: Discharge Clinical Impression: Shoulder pain, right Qualifiers: Chronicity: acute Qualified Code(s): M25.511 - Pain in right shoulder Disposition: Home, Self-Care Condition: (1) Good Instructions: Pain Management in the Elderly (ED), Shoulder Pain (ED) Additional Instructions: No heavy lifting with arms. Flexeril as directed as needed for pain. Follow up with PCP in office this week for recheck of shoulder. Prescriptions: Cyclobenzaprine HCl [Flexeril] 10 mg PO TID #14 tablet Quality - Quality Measures Quality Measures: N/A - Blood Pressure Screening Does Patient Have Any of the Following: No Blood Pressure Classification: Pre-Hypertensive BP Reading Systolic Measurement: 141 Diastolic Measurement: 80 Screening for High Blood Pressure: < Normal BP, F/U Not Required > [G8783]
[2016-09-18] MEDS: CYCLOBENZAPRINE 10MG TABLET PO ONE (00:35)
--- NOTE | 2016-09-19 14:50 | RADIOLOGY REPORT ---
EXAM: RIGHT SHOULDER HISTORY: RIGHT SHOULDER AND SCAPULA PAIN FOR TWO WEEKS, NO HISTORY OF TRAUMA PROVIDED. TECHNIQUE: Three views of the right shoulder were obtained. Comparison: No prior right shoulder series. FINDINGS: The right shoulder appears intact with no fracture or dislocation identified. No destructive lesion is seen. If shoulder symptoms persist, a follow-up MRI of the right shoulder may be useful for further evaluation if not contraindicated. IMPRESSION: THE RIGHT SHOULDER APPEARS NEGATIVE. JOB NUMBER: [id number] MTDD
--- NOTE | 2016-09-19 14:52 | RADIOLOGY REPORT ---
EXAM: RIGHT SCAPULA HISTORY: PAIN IN THE RIGHT SHOULDER AND RIGHT SCAPULA FOR TWO WEEKS, NO HISTORY OF TRAUMA PROVIDED. TECHNIQUE: Two views of the right scapula were obtained. Comparison: No prior right scapular series. FINDINGS: The right scapula appears intact. No definite fracture or destructive lesion is seen. IMPRESSION: THE RIGHT SCAPULA APPEARS NEGATIVE. JOB NUMBER: [id number] MTDD
== END 2016-09-18 00:41 | disposition home or self-care (01) ==
LOC: ER 23:38
DX: M25.511 Pain in right shoulder (principal)
CPT/HCPCS: 99283